=== PATIENT | female | born 1945 | race Caucasian/White ===

== ENCOUNTER → 2016-06-11 | Outpatient (CLI) | payer MEDICARE, BC ==
[~2016-06-11] VITALS: Ht 166.4 cm; Wt 81.2 kg
[~2016-06-11] MED LIST: AMITRIPTYLINE H50 M1 PO; COZAAR100 MG PO; ELAVIL50 MG PO; HCTZ 25MG TAB25 MG PO; LEVO T PO; NEFAZODONE HCL200 MG PO; PAMELOR 10MG10 MG PO; PAMELOR50 MG PO; PHENTERMINE15 MG PO; SYNTHROID0.1 MG/TAB PO
[2016-06-11 15:12] VITALS: BP 130/50; PULSE 85
[2016-06-11 15:39] VITALS: BP 130/50; PULSE 85
== END ==
LOC: LIGHT 14:46
DX: F32.89 Other specified depressive episodes (principal); I10 Essential (primary) hypertension; E03.8 Other specified hypothyroidism; E66.3 Overweight; Z68.29 Body mass index [BMI] 29.0-29.9, adult

== ENCOUNTER → 2016-07-09 | Outpatient (CLI) | payer MEDICARE, BC ==
[~2016-07-09] VITALS: Ht 166.4 cm; Wt 82.3 kg
== END ==
LOC: LIGHT 08:45
DX: F32.89 Other specified depressive episodes (principal); I10 Essential (primary) hypertension; E03.8 Other specified hypothyroidism; E66.3 Overweight; Z68.29 Body mass index [BMI] 29.0-29.9, adult

== ENCOUNTER → 2016-08-13 | Outpatient (CLI) | payer MEDICARE, BC ==
[~2016-08-13] VITALS: Ht 166.4 cm; Wt 82.3 kg
== END ==
LOC: LIGHT 10:20
DX: F32.89 Other specified depressive episodes (principal); I10 Essential (primary) hypertension; E03.8 Other specified hypothyroidism; E66.3 Overweight; Z68.29 Body mass index [BMI] 29.0-29.9, adult

== ENCOUNTER → 2016-10-13 | Outpatient (CLI) | payer MEDICARE, BC | LOC: MC.RAD 10:20 | DX: Z12.31 Encounter for screening mammogram for malignant neoplasm of breast (principal) ==

== ENCOUNTER → 2016-12-03 | Outpatient (CLI) | payer MEDICARE, BC ==
[~2016-12-03] VITALS: Ht 166.4 cm; Wt 82.6 kg
[2016-12-03 11:36] VITALS: BP 129/61; PULSE 84
== END ==
LOC: LIGHT 09-24 12:15
DX: F32.89 Other specified depressive episodes (principal); I10 Essential (primary) hypertension; E03.9 Hypothyroidism, unspecified; E66.3 Overweight; Z68.29 Body mass index [BMI] 29.0-29.9, adult; Z71.3 Dietary counseling and surveillance

== ENCOUNTER → 2017-01-14 | Outpatient (CLI) | payer MEDICARE, BC ==
[~2017-01-14] VITALS: Ht 166.4 cm; Wt 83.7 kg
[2017-01-14 11:14] VITALS: BP 122/72; PULSE 68
== END ==
LOC: LIGHT 10:49
DX: F32.89 Other specified depressive episodes (principal); I10 Essential (primary) hypertension; E03.9 Hypothyroidism, unspecified; E66.3 Overweight; Z68.30 Body mass index [BMI] 30.0-30.9, adult; Z71.3 Dietary counseling and surveillance

== ENCOUNTER → 2017-04-01 | Outpatient (CLI) | payer MEDICARE, BC ==
[~2017-04-01] VITALS: Ht 166.4 cm; Wt 84.4 kg
[~2017-04-01] MED LIST changes: +MOBIC15 MG PO
[2017-04-01 16:09] VITALS: BP 134/80; PULSE 60
== END ==
LOC: LIGHT 10:47
DX: F32.89 Other specified depressive episodes (principal); I10 Essential (primary) hypertension; E03.9 Hypothyroidism, unspecified; E66.3 Overweight; Z68.30 Body mass index [BMI] 30.0-30.9, adult; Z71.3 Dietary counseling and surveillance

== ENCOUNTER → 2017-04-29 | Outpatient (CLI) | payer MEDICARE, BC ==
[~2017-04-29] VITALS: Ht 166.4 cm; Wt 82.6 kg
[2017-04-29 16:03] VITALS: BP 110/80; PULSE 72
== END ==
LOC: LIGHT 02-18 09:39
DX: F32.89 Other specified depressive episodes (principal); I10 Essential (primary) hypertension; E03.9 Hypothyroidism, unspecified; E66.3 Overweight; Z68.29 Body mass index [BMI] 29.0-29.9, adult; Z71.3 Dietary counseling and surveillance
CPT/HCPCS: G0463

== ENCOUNTER → 2017-04-29 | Outpatient (CLI) | payer MEDICARE, BC | LOC: LIGHT 15:58 | DX: Z01.89 Encounter for other specified special examinations (principal) ==

== ENCOUNTER → 2017-06-03 | Outpatient (CLI) | payer MEDICARE, BC ==
[~2017-06-03] VITALS: Ht 166.4 cm; Wt 81.6 kg
[2017-06-03 11:08] VITALS: BP 112/74; PULSE 68
== END ==
LOC: LIGHT 09:30
DX: F32.89 Other specified depressive episodes (principal); I10 Essential (primary) hypertension; E03.9 Hypothyroidism, unspecified; E66.3 Overweight; Z68.29 Body mass index [BMI] 29.0-29.9, adult; Z71.3 Dietary counseling and surveillance
CPT/HCPCS: G0463

== ENCOUNTER → 2017-07-15 | Outpatient (CLI) | payer MEDICARE, BC ==
[~2017-07-15] VITALS: Ht 166.4 cm; Wt 81.6 kg
[2017-07-15 11:03] VITALS: BP 142/82; PULSE 76
== END ==
LOC: LIGHT 08:54
DX: F32.89 Other specified depressive episodes (principal); I10 Essential (primary) hypertension; E03.9 Hypothyroidism, unspecified; E66.3 Overweight; Z68.29 Body mass index [BMI] 29.0-29.9, adult; Z71.3 Dietary counseling and surveillance
CPT/HCPCS: G0463

== ENCOUNTER → 2017-08-12 | Outpatient (CLI) | payer MEDICARE, BC ==
[~2017-08-12] VITALS: Ht 166.4 cm; Wt 82.6 kg
[2017-08-12 11:51] VITALS: BP 120/74; PULSE 76
== END ==
LOC: LIGHT 09:35
DX: F32.89 Other specified depressive episodes (principal); I10 Essential (primary) hypertension; E03.9 Hypothyroidism, unspecified; E66.3 Overweight; Z68.29 Body mass index [BMI] 29.0-29.9, adult; Z71.3 Dietary counseling and surveillance
CPT/HCPCS: G0463

== ENCOUNTER → 2017-08-19 | Outpatient (CLI) | payer MEDICARE, BC | LOC: COL.VAS 14:32 | DX: M79.661 Pain in right lower leg (principal); R22.41 Localized swelling, mass and lump, right lower limb ==

== ENCOUNTER → 2017-09-16 | Outpatient (CLI) | payer MEDICARE, BC ==
[~2017-09-16] VITALS: Ht 166.4 cm; Wt 83.7 kg
[2017-09-16 10:58] VITALS: BP 120/68; PULSE 76
== END ==
LOC: LIGHT 10:39
DX: F32.89 Other specified depressive episodes (principal); I10 Essential (primary) hypertension; E03.9 Hypothyroidism, unspecified; E66.3 Overweight; Z68.30 Body mass index [BMI] 30.0-30.9, adult; Z71.3 Dietary counseling and surveillance
CPT/HCPCS: G0463

== ENCOUNTER 2017-09-28 07:16 | Day surgery (SDC) | payer MEDICARE, BC ==
[~2017-09-28] VITALS: Ht 165.1 cm; Wt 82.0 kg
[2017-09-28 07:36] VITALS: BP 121/69; PULSE 72; TEMP 97
[2017-09-28 09:05] VITALS: BP 113/69; PULSE 75; TEMP 98.7
[2017-09-28 09:20] VITALS: BP 110/71; PULSE 75
[2017-09-28 09:35] VITALS: BP 118/65; PULSE 75
== END 2017-09-28 10:00 | disposition home or self-care (01) ==
LOC: SDCO 07:16
DX: Z12.11 Encounter for screening for malignant neoplasm of colon (principal); I10 Essential (primary) hypertension; E03.9 Hypothyroidism, unspecified
CPT/HCPCS: OP; J2250; J3010; J7030

== ENCOUNTER → 2017-12-02 | Outpatient (CLI) | payer MEDICARE, BC | LOC: LIGHT 11:01 | DX: F32.89 Other specified depressive episodes (principal); I10 Essential (primary) hypertension; E03.9 Hypothyroidism, unspecified; E66.3 Overweight; Z71.3 Dietary counseling and surveillance | CPT/HCPCS: G0463 ==

== ENCOUNTER → 2018-02-03 | Outpatient (CLI) | payer MEDICARE, BC ==
[~2018-02-03] VITALS: Ht 165.2 cm; Wt 82.3 kg
[2018-02-03 10:47] VITALS: BP 126/70; PULSE 64
== END ==
LOC: LIGHT 10:55
DX: F32.9 Major depressive disorder, single episode, unspecified (principal); I10 Essential (primary) hypertension; E03.9 Hypothyroidism, unspecified; E66.9 Obesity, unspecified; Z68.29 Body mass index [BMI] 29.0-29.9, adult; Z71.3 Dietary counseling and surveillance
CPT/HCPCS: G0463

== ENCOUNTER → 2018-02-21 | Outpatient (CLI) | payer MEDICARE, BC | LOC: MC.RAD 13:40 | DX: Z12.31 Encounter for screening mammogram for malignant neoplasm of breast (principal) ==

== ENCOUNTER → 2018-03-10 | Outpatient (CLI) | payer MEDICARE, BC ==
[~2018-03-10] VITALS: Ht 166.4 cm; Wt 83.5 kg
[2018-03-10 13:57] VITALS: BP 110/56; PULSE 84
== END ==
LOC: LIGHT 11:31
DX: I10 Essential (primary) hypertension (principal); E03.9 Hypothyroidism, unspecified; F32.9 Major depressive disorder, single episode, unspecified; E66.3 Overweight; Z68.30 Body mass index [BMI] 30.0-30.9, adult; Z71.3 Dietary counseling and surveillance
CPT/HCPCS: G0463

== ENCOUNTER → 2018-07-14 | Outpatient (CLI) | payer MEDICARE, BC ==
[~2018-07-14] VITALS: Ht 166.4 cm; Wt 84.6 kg
[2018-07-14 13:36] VITALS: BP 126/66; PULSE 84
== END ==
LOC: LIGHT 06-16 09:03
DX: F32.9 Major depressive disorder, single episode, unspecified (principal); I10 Essential (primary) hypertension; E03.9 Hypothyroidism, unspecified; E66.3 Overweight; Z68.30 Body mass index [BMI] 30.0-30.9, adult; Z71.3 Dietary counseling and surveillance
CPT/HCPCS: G0463

== ENCOUNTER → 2018-09-01 | Outpatient (CLI) | payer MEDICARE, BC ==
[~2018-09-01] VITALS: Ht 166.4 cm; Wt 85.3 kg
[2018-09-01 10:10] VITALS: BP 104/60; PULSE 68
== END ==
LOC: LIGHT 10:05
DX: F32.9 Major depressive disorder, single episode, unspecified (principal); I10 Essential (primary) hypertension; E03.9 Hypothyroidism, unspecified; E66.9 Obesity, unspecified; Z68.30 Body mass index [BMI] 30.0-30.9, adult; Z71.3 Dietary counseling and surveillance
CPT/HCPCS: G0463

== ENCOUNTER → 2018-10-13 | Outpatient (CLI) | payer MEDICARE, BC ==
[~2018-10-13] VITALS: Ht 166.4 cm; Wt 85.3 kg
[~2018-10-13] MED LIST changes: +VITAMIN D31000 I1 PO
[2018-10-13 11:10] VITALS: BP 134/70; PULSE 68
== END ==
LOC: LIGHT 11:03
DX: F32.9 Major depressive disorder, single episode, unspecified (principal); I10 Essential (primary) hypertension; E03.9 Hypothyroidism, unspecified; E66.9 Obesity, unspecified; Z68.30 Body mass index [BMI] 30.0-30.9, adult; Z71.3 Dietary counseling and surveillance
CPT/HCPCS: G0463

== ENCOUNTER → 2018-11-10 | Outpatient (CLI) | payer MEDICARE, BC ==
[~2018-11-10] VITALS: Ht 166.4 cm; Wt 85.0 kg
[2018-11-10 15:55] VITALS: BP 114/66; PULSE 72
== END ==
LOC: LIGHT 14:49
DX: F32.9 Major depressive disorder, single episode, unspecified (principal); I10 Essential (primary) hypertension; E03.9 Hypothyroidism, unspecified; E66.9 Obesity, unspecified; Z68.30 Body mass index [BMI] 30.0-30.9, adult; Z71.3 Dietary counseling and surveillance
CPT/HCPCS: G0463

== ENCOUNTER → 2019-01-05 | Outpatient (CLI) | payer MEDICARE, BC ==
[~2019-01-05] VITALS: Ht 166.4 cm; Wt 86.9 kg
[2019-01-05 10:44] VITALS: BP 130/68; PULSE 72
== END ==
LOC: LIGHT 10:12
DX: F32.9 Major depressive disorder, single episode, unspecified (principal); I10 Essential (primary) hypertension; E03.9 Hypothyroidism, unspecified; E66.3 Overweight; Z68.31 Body mass index [BMI] 31.0-31.9, adult; Z71.3 Dietary counseling and surveillance
CPT/HCPCS: G0463

== ENCOUNTER 2019-01-16 10:00 | Outpatient (RCR) | payer MEDICARE, BC | END 2019-01-23 08:40 | disposition still patient (30) | LOC: WSC 10:00 | DX: M25.561 Pain in right knee (principal); G89.29 Other chronic pain ==

== ENCOUNTER → 2019-02-02 | Outpatient (CLI) | payer MEDICARE, BC ==
[~2019-02-02] VITALS: Ht 166.4 cm; Wt 87.1 kg
[2019-02-02 14:34] VITALS: BP 128/60; PULSE 80
== END ==
LOC: LIGHT 09:28
DX: F32.9 Major depressive disorder, single episode, unspecified (principal); I10 Essential (primary) hypertension; E03.9 Hypothyroidism, unspecified; E66.3 Overweight; Z68.31 Body mass index [BMI] 31.0-31.9, adult; Z71.3 Dietary counseling and surveillance
CPT/HCPCS: G0463

== ENCOUNTER → 2019-03-09 | Outpatient (CLI) | payer MEDICARE, BC ==
[~2019-03-09] VITALS: Ht 166.4 cm; Wt 86.4 kg
[~2019-03-09] MED LIST changes: +PAMELOR75 MG PO
[2019-03-09 13:27] VITALS: BP 128/64; PULSE 80
== END ==
LOC: LIGHT 13:18
DX: F32.9 Major depressive disorder, single episode, unspecified (principal); I10 Essential (primary) hypertension; E03.9 Hypothyroidism, unspecified; E66.3 Overweight; Z68.31 Body mass index [BMI] 31.0-31.9, adult; Z71.3 Dietary counseling and surveillance
CPT/HCPCS: G0463

== ENCOUNTER 2019-04-11 15:00 | Outpatient (RCR) | payer MEDICARE, BC ==
[~2019-04-11 15:00] MED LIST changes: +PAMELOR 25MG25 MG PO; -PAMELOR75 MG PO
== END 2019-04-25 09:28 | disposition home or self-care (01) ==
LOC: WSC 15:00
DX: Z01.818 Encounter for other preprocedural examination (principal); M70.61 Trochanteric bursitis, right hip

== ENCOUNTER → 2019-04-13 | Outpatient (CLI) | payer MEDICARE, BC ==
[~2019-04-13] VITALS: Ht 166.4 cm; Wt 84.8 kg
[2019-04-13 13:07] VITALS: BP 126/80; PULSE 68
== END ==
LOC: LIGHT 12:59
DX: F32.9 Major depressive disorder, single episode, unspecified (principal); I10 Essential (primary) hypertension; E03.9 Hypothyroidism, unspecified; E66.3 Overweight; Z68.30 Body mass index [BMI] 30.0-30.9, adult; Z71.3 Dietary counseling and surveillance
CPT/HCPCS: G0463

== ENCOUNTER → 2019-06-01 | Outpatient (CLI) | payer MEDICARE, BC | LOC: MC.RAD 10:45 | DX: Z12.31 Encounter for screening mammogram for malignant neoplasm of breast (principal) ==

== ENCOUNTER 2019-07-17 13:00 | Outpatient (RCR) | payer MEDICARE, BC | END 2019-07-20 07:55 | disposition home or self-care (01) | LOC: WSC 13:00 | DX: Z96.651 Presence of right artificial knee joint (principal) ==

== ENCOUNTER → 2019-08-03 | Outpatient (CLI) | payer MEDICARE, BC ==
[~2019-08-03] VITALS: Ht 166.4 cm; Wt 85.3 kg
[2019-08-03 14:26] VITALS: BP 124/66; PULSE 80
== END ==
LOC: LIGHT 07-13 11:38
DX: Z68.30 Body mass index [BMI] 30.0-30.9, adult (principal); I10 Essential (primary) hypertension; F32.9 Major depressive disorder, single episode, unspecified
CPT/HCPCS: G0463

== ENCOUNTER 2019-10-26 14:00 | Outpatient (RCR) | payer MEDICARE, BC | END 2019-11-02 | disposition home or self-care (01) | LOC: WSC | DX: M54.5 Low back pain (principal) ==

== ENCOUNTER 2019-11-27 13:45 | Outpatient (RCR) | payer MEDICARE, BC ==
[2019-12-21] MEDS ORDERED: CITRACAL-D3 ER1 EACH PO (13:42)
== END 2020-02-06 | disposition home or self-care (01) ==
LOC: WSC
DX: M54.5 Low back pain (principal)

== ENCOUNTER → 2019-12-21 | Outpatient (CLI) | payer MEDICARE, BC ==
[~2019-12-21] VITALS: Ht 166.4 cm; Wt 84.4 kg
[~2019-12-21] MED LIST changes: +CITRACAL-D3 ER1 EACH PO
[2019-12-21 13:42] VITALS: BP 140/76; PULSE 80
== END ==
LOC: LIGHT 11:21
DX: E66.8 Other obesity (principal); Z68.30 Body mass index [BMI] 30.0-30.9, adult; I10 Essential (primary) hypertension; E03.9 Hypothyroidism, unspecified
CPT/HCPCS: G0463

== ENCOUNTER → 2020-02-01 | Outpatient (CLI) | payer MEDICARE, BC ==
[~2020-02-01] VITALS: Ht 166.4 cm; Wt 84.8 kg
[2020-02-01 13:17] VITALS: BP 142/70; PULSE 80
== END ==
LOC: LIGHT 13:11
DX: E66.8 Other obesity (principal); Z68.30 Body mass index [BMI] 30.0-30.9, adult; E03.9 Hypothyroidism, unspecified; I10 Essential (primary) hypertension
CPT/HCPCS: G0463

== ENCOUNTER → 2020-06-27 | Outpatient (CLI) | payer MEDICARE, BC | LOC: MC.RAD 12:00 | DX: Z12.31 Encounter for screening mammogram for malignant neoplasm of breast (principal) ==

== ENCOUNTER → 2021-10-03 | Outpatient (CLI) | payer MEDICARE, BC | LOC: MC.RAD 09-25 11:00 | DX: Z12.31 Encounter for screening mammogram for malignant neoplasm of breast (principal) ==

== ENCOUNTER → 2021-12-19 | Outpatient (CLI) | payer MEDICARE, BC | LOC: COL.RAD 09:33 | DX: R31.0 Gross hematuria (principal) | CPT/HCPCS: Q9967 ==

== ENCOUNTER → 2022-10-08 | Outpatient (CLI) | payer MEDICARE, BC | LOC: MC.RAD 09:42 | DX: Z12.31 Encounter for screening mammogram for malignant neoplasm of breast (principal); Z00.00 Encounter for general adult medical examination without abnormal findings ==